=== PATIENT | male | born 1945 | race Caucasian/White ===

== ENCOUNTER → 2017-09-20 | Outpatient (CLI) | payer MEDICARE, OTHER ==
[2017-09-20 12:59] LABS: BASOPHILS # (AUTO) 0.1 10^3/uL (0.0-0.1); BASOPHILS % (AUTO) 1 % (0-10); EOSINOPHILS # (AUTO) 0.2 10^3/uL (0.0-0.3); EOSINOPHILS % (AUTO) 2 % (0-10); HEMATOCRIT 54 % (40-54); HEMOGLOBIN 18.8 G/DL (13.3-17.7); LYMPHOCYTES # (AUTO) 1.3 X 10^3 (1.0-4.0); LYMPHOCYTES % (AUTO) 14 % (12-44); MEAN CORPUSCULAR HEMOGLOBIN 32 PG (25-34); MEAN CORPUSCULAR HGB CONC 35 G/DL (32-36); MEAN CORPUSCULAR VOLUME 93 FL (80-99); MEAN PLATELET VOLUME 10.1 FL (7.4-10.4); MONOCYTES # (AUTO) 0.6 X 10^3 (0.0-1.0); MONOCYTES % (AUTO) 7 % (0-12); NEUTROPHILS # (AUTO) 6.8 X 10^3 (1.8-7.8); NEUTROPHILS % (AUTO) 76 % (42-75); PLATELET COUNT 199 10^3/uL (130-400); RED BLOOD COUNT 5.82 10^6/uL (4.35-5.85); RED CELL DISTRIBUTION WIDTH 13.6 % (10.0-14.5)
[2017-09-20 13:19] LABS: ALANINE AMINOTRANSFERASE 30 U/L (0-55); ALBUMIN 4.4 GM/DL (3.2-4.5); ALKALINE PHOSPHATASE 66 U/L (40-136); BILIRUBIN,TOTAL 0.6 MG/DL (0.1-1.0); BUN/CREATININE RATIO 18; CALCIUM 9.3 MG/DL (8.5-10.1); CARBON DIOXIDE 23 MMOL/L (21-32); CHLORIDE 107 MMOL/L (98-107); CREATININE SERUM 1.08 MG/DL (0.60-1.30); GFR ESTIMATED > 60; GLUCOSE 96 MG/DL (70-105); POTASSIUM 4.5 MMOL/L (3.6-5.0); SODIUM 141 MMOL/L (135-145); TOTAL PROTEIN 7.2 GM/DL (6.4-8.2)
[2017-09-20 13:51] LABS: ERYTHROCYTE SEDIMENTATION RATE 1 MM/HR (0-30)
== END ==
LOC: LAB 12:41
PROVIDERS: ATTEND Nurse Practitioner Family
DX: R21 Rash and other nonspecific skin eruption (principal)
CPT/HCPCS: 36415; 80053; 85025; 85652

== ENCOUNTER 2018-04-26 05:41 | Outpatient (CLI) | payer MEDICARE, OTHER ==
[~2018-04-26] VITALS: Ht 180.3 cm; Wt 72.6 kg
[2018-04-26] MEDS ORDERED: INDO25CA15 PO (12:56)
== END 2018-04-26 13:09 | disposition home or self-care (01) ==
LOC: PREOP 05:41
PROVIDERS: ATTEND Surgery
DX: Z01.818 Encounter for other preprocedural examination (principal)

== ENCOUNTER 2018-04-28 07:40 | Day surgery (SDC) | payer MEDICARE, OTHER ==
[~2018-04-28] VITALS: Ht 180.3 cm; Wt 72.6 kg
[~2018-04-28 07:40] MED LIST: INDO25CA15 PO
[2018-04-28] MEDS ORDERED: BUP/EPI 0.5% 1:200,000 (SENSORCAINE) 30 ML VIAL ONE (08:15)
[2018-04-28] MEDS ORDERED: proPOfol 200 MG/20 ML (DIPRIVAN) VIAL IV ONE (08:19)
[2018-04-28] MEDS ORDERED: ONDANSETRON 4 MG/2 ML (SDV) Z0FRAN ONE (08:19)
[2018-04-28] MEDS ORDERED: LIDOCAINE PF 2% 5 ML (XYLOCAINE) VIAL ONE (08:19)
[2018-04-28] MEDS ORDERED: DEXAMETHASONE 10 MG/ML (DECADRON) 1 ML VIAL ONE (08:19)
[2018-04-28] MEDS ORDERED: MIDAZOLAM 2 MG/2 ML (VERSED) VIAL ONE (08:20)
[2018-04-28] MEDS ORDERED: fentaNYL INJECTION 100 MCG/2 ML AMP ONE ×2 (08:20→10:43)
[2018-04-28] MEDS ORDERED: SEVOFLURANE (ULTANE) 15 ML INHAL SOLN ONE ×6 (08:23→10:54)
[2018-04-28] MEDS ORDERED: ROCURONIUM 10 MG/ML 5 ML SYRINGE IV ONE (08:23)
[2018-04-28 08:27] VITALS: BP 103/81
[2018-04-28] MEDS: LACTATED RINGERS 1,000 ML IV PRN ×2 (08:30→10:00)
[2018-04-28] MEDS ORDERED: ceFAZolin 2 GM IV Premixed 50 ML IV ONE (08:30)
--- NOTE | 2018-04-28 09:37 | Progress Note-Pre Operative ---
Pre-Operative Progress Note H&P Reviewed The H&P was reviewed, patient examined and no changes noted. Date Seen by Provider: Apr 28, 2018 Time Seen by Provider: 09:00 Date H&P Reviewed: Apr 28, 2018 Time H&P Reviewed: 09:00 Pre-Operative Diagnosis: symptomatic reducible right inguinal hernia CHAPINCITO MINER MD Apr 28, 2018 09:37
[2018-04-28] MEDS ORDERED: HYDR-34 PO (09:39)
--- NOTE | 2018-04-28 09:40 | Discharge Inst-Surgical ---
D/C Lap Instructions-KRISTOFER New, Converted, or Re-Newed RX: RX on Chart Follow Up Appt in 2 weeks Activity as tolerated No driving for 24 hours No driving while on pain medications Incentive Spirometry use every 2 hours while awake Regular Diet Symptoms to Report: Fever over 101 degree F, Nausea/Vomiting Infection Signs and Symptoms to report: Increased redness, Foul odor of wound, Increased drainage Bathing instructions: May shower Operative Area Clean/Dry; Keep incision clean/dry If any problems/questions: Contact your physician or go to Emergency Room CHAPINCITO MINER MD Apr 28, 2018 09:40
[2018-04-28] MEDS ORDERED: oxyCODONE/APAP 5/325MG (PERCOCET 5) TABLET PO PRN (09:45)
[2018-04-28] MEDS ORDERED: ONDANSETRON 4 MG/2 ML (SDV) Z0FRAN IVP PRN ×2 (09:45→11:15)
[2018-04-28] MEDS ORDERED: morphine INJ 10 MG/ML 1ML (SYR OR VIAL) IVP PRN (09:45)
[2018-04-28] MEDS ORDERED: ACETAMINOPHEN 325 MG TABLET PO PRN (09:45)
[2018-04-28] MEDS ORDERED: GLYCOPYRROLATE 0.2 MG/ML (ROBINUL) 2 ML VIAL ONE (10:45)
[2018-04-28] MEDS ORDERED: NEOSTIGMINE 1 MG/ML 5 ML SYRINGE ONE (10:45)
[2018-04-28] MEDS ORDERED: KETOROLAC 30 MG/ML VIAL ONE (10:55)
--- NOTE | 2018-04-28 11:04 | Progress Note-Post Operative ---
Post-Operative Progess Note Surgeon (s)/Fresh Foods Technician (s) Surgeon CHAPINCITO MINER MD Fresh Foods Technician: none Pre-Operative Diagnosis symptomatic reducible right inguinal hernia Post-Operative Diagnosis same Procedure & Operative Findings Date of Procedure 04/28/18 Procedure Performed/Findings laparoscopic right indirect inguinal hernia with mesh. Anesthesia Type GET Estimated Blood Loss Estimated blood loss (mL): minimal Specimens/Packing Specimens Removed none CHAPINCITO MINER MD Apr 28, 2018 11:04
[2018-04-28] MEDS ORDERED: HYDROmorphone 2 MG/ML VIAL (DILAUDID) IV ONE (11:15)
[2018-04-28 12:05] VITALS: BP 103/80
--- NOTE | 2018-04-28 12:05 | Anesthesia-General Post-Op ---
General Patient Condition Mental Status/LOC: Same as Preop Cardiovascular: Satisfactory Nausea/Vomiting: Absent Respiratory: Satisfactory Pain: Controlled Complications: Absent Post Op Complications Complications None Follow Up Care/Instructions Patient Instructions None needed. Anesthesia/Patient Condition Patient Condition Patient is doing well, no complaints, stable vital signs, no apparent adverse anesthesia problems. No complications reported per nursing. ROSALBA SINGH CRNA Apr 28, 2018 12:05
[2018-04-28 12:35] VITALS: BP 101/68
[2018-04-28 13:05] VITALS: BP 102/69
[2018-04-28 13:30] VITALS: BP 102/69
--- NOTE | 2018-04-28 15:26 | OPERATIVE REPORT ---
DATE OF SERVICE: 04/28/2018 ATTENDING PRIMARY CARE PHYSICIAN: Dr. Felix. PREOPERATIVE DIAGNOSIS: Symptomatic reducible right inguinal hernia. POSTOPERATIVE DIAGNOSIS: Symptomatic reducible right indirect inguinal hernia. PROCEDURE: Laparoscopic right inguinal hernia repair with mesh. SURGEON: Chapincito Miner MD ANESTHESIA: General endotracheal. ESTIMATED BLOOD LOSS: Minimal. FINDINGS: Right indirect inguinal hernia with nothing within the hernia sac. There was no left inguinal hernia component. Remainder of the omentum and small bowel appeared to be normal. DISPOSITION: The patient tolerated the procedure well. INDICATIONS: The patient is a 72-year-old male who was referred over to us for pain and swelling of the right inguinal region. He reports that this has been present for approximately 15 years; however, was small and asymptomatic; however, over the years, has grown much larger in size and become symptomatic. Upon examination, he was found to have a right inguinal hernia, which was reducible; however, tender to palpation. He is otherwise eating well, having normal bowel movements. DESCRIPTION OF PROCEDURE: The patient was brought to the operating room, laid supine on the table. After adequate IV pain and sedative medications and general endotracheal intubation, the abdomen was prepped and draped in standard surgical fashion. A 0.5% Marcaine with epinephrine was used to anesthetize the overlying skin in the infraumbilical rim and a transverse skin incision made using a 15 blade, a sharp towel clamp was applied. The Veress needle inserted with low opening pressure of 0 mmHg and the abdomen insufflated to 15 mmHg pressure. The Veress needle removed and a 10 mm Xcel trocar placed followed by a 10 mm 45-degree angle laparoscope visualizing the peritoneal cavity. Under direct visualization, we then proceed to place bilateral 5 mm ports after the skin and peritoneal lining were anesthetized using 0.5% Marcaine with epinephrine and a transverse skin incision made using a 15 blade. The patient was placed and then placed in Trendelenburg position. The peritoneal lining was then opened using Sonicision for starting laterally towards the conjoint tendon and inguinal ligament. We then proceeded medially identifying Darrick's ligament. We then proceeded inferior encompassing the entire hernia sac as well. The cord and its contents were identified and spared throughout the process. A medium size 3DMax polypropylene mesh was then placed through the 10 mm port and tacked to the Darrick's ligament medially and to the conjoined tendon laterally using absorbable tacks. The peritoneal lining was then placed over the mesh and a few tacks placed to hold it in place with visualization of good hemostasis. The 10 mm port site fascia and peritoneum were then closed under direct visualization using a Kahlil-Jerald device and 0 Vicryl suture. The abdomen was desufflated and remaining ports removed. All skin incisions were closed with 4-0 Monocryl running subcuticular sutures. Wounds were then cleaned and covered with Dermabond. The patient tolerated the procedure well. We will start IV normal pain medication as well as a clear liquid diet. Once he is tolerating clears, has good pain control with oral pain medication and is ambulating well, we will discharge him home. He is instructed to do no heavy lifting or exertion especially for the first 2 weeks. Job ID: [id number] DocumentID: [id number] Dictated Date: 04/28/2018 11:16:23 Embroidery Designer Date: 04/28/2018 15:26:00 Dictated By: CHAPINCITO MINER MD
== END 2018-04-28 13:30 | disposition home or self-care (01) ==
LOC: SDC 07:40
PROVIDERS: ATTEND Surgery
DX: K40.90 Unilateral inguinal hernia, without obstruction or gangrene, not specified as recurrent (principal); F17.220 Nicotine dependence, chewing tobacco, uncomplicated
CPT/HCPCS: 87081; 94664

== ENCOUNTER → 2019-09-12 | Outpatient (CLI) | payer MEDICARE, OTHER ==
[~2019-09-12] MED LIST changes: +HYDR-34 PO; -INDO25CA15 PO; +INDO25CA99 PO
--- NOTE | 2019-09-12 09:35 | Diagnostic Imaging Report ---
CLINICAL INDICATION: Patient has clinical back pain. EXAM: MRI of the lumbar spine performed without IV contrast. Sequences include sagittal T2, sagittal T1, sagittal T2 fat-sat, and axial T2. COMPARISON: None. FINDINGS: There is no acute lumbar spine fracture or dislocation. There is Modic type I degenerative signal changes involving the L2-L3, L3-L4, and L4-L5 levels. The visualized portions of the distal thoracic spinal cord, conus medullaris, and cauda equina nerve roots are unremarkable. The conus medullaris tip is seen at the lower L1 vertebral body level. There is no significant paraspinal soft tissue abnormality. There are hypertrophic spurs seen throughout the lumbar spine and facet arthropathy. L1-L2: There is a mild diffuse disc bulge. There is oltz-vl-kkiigitv facet arthropathy. There is moderate central canal narrowing, mild right neural foramen narrowing and vyrj-fq-xhbitzka left neural foramen narrowing. L2-L3: There is a diffuse disc bulge with severe loss of disc space height and endplate irregularity. There are disc spurs posteriorly extend into the foraminal regions bilaterally. There is moderate bilateral facet arthropathy. There is severe central canal stenosis and severe bilateral neural foramen narrowing. (right side more than the left). L3-L4: There is a diffuse disc bulge with moderate bilateral facet arthropathy. There is moderate to severe central canal stenosis. There is severe bilateral neural foramen narrowing. L4-L5: There is a diffuse disc bulge with moderate to severe loss of disc space height. There are disc spurs extend posteriorly into the foraminal regions bilaterally. There is severe bilateral facet arthropathy and ligamentum flavum buckling. There is moderate to severe central canal stenosis. There is severe bilateral neural foramen narrowing. L5-S1: There is a broad right paracentral disc protrusion/herniation which also extends to the right subarticular region. There is moderate to severe bilateral neural foramen narrowing. There is mild central canal narrowing. IMPRESSION: There is severe multilevel lumbar spine degenerative disc disease which is described detailed above. Dictated by: Dictated on workstation # [id number]
== END ==
LOC: RAD 07:25
PROVIDERS: ATTEND Orthopaedic Surgery
DX: M48.07 Spinal stenosis, lumbosacral region (principal); M51.16 Intervertebral disc disorders with radiculopathy, lumbar region
CPT/HCPCS: 72148

== ENCOUNTER → 2020-06-17 | Outpatient (CLI) | payer MEDICARE, OTHER ==
--- NOTE | 2020-06-17 11:55 | Diagnostic Imaging Report ---
EXAMINATION: Magnetic resonance imaging of the pelvis and left hip without contrast. DATE: June 17, 2020. COMPARISON: None. INDICATION: 74-year-old male, left hip pain. TECHNIQUE: Magnetic Resonance Imaging sequences were performed of the pelvis and left hip without contrast. FINDINGS: TENDONS AND MUSCLES: The gluteus alondra muscles and their origins and insertions are intact bilaterally. The tendons and muscles of the greater trochanter - gluteus minimus, piriformis and gluteus medius - are intact bilaterally. Both common hamstring attachments on the ischial tuberosities are intact and the extensor muscles of the thigh are intact. The visualized portions of the flexors and adductor muscles of the thigh and their attachments on the pelvis and hips are intact. Both iliopsoas and iliacus muscles are intact. The bilateral iliopsoas tendons are intact. 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 There is severe joint space loss of the left hip with xsoj-me-uzzs articulation. There is subchondral cystic change, osteophyte formation, and associated marrow edema. There is a small left hip joint effusion. The sacroiliac joints are unremarkable in appearance. LUMBAR SPINE: There is severe disc height loss at L2-L3, moderate disc height loss at L3-L4, and severe disc height loss at L4-L5. There is otherwise limited assessment of the lumbar spine. BONE: There is no acute fracture, bone contusion, or evidence of osteonecrosis. BURSAE AND SOFT TISSUES: There is diffuse wall thickening of the urinary bladder which may relate to cystitis and/or chronic outlet obstruction. Additional bursal and soft tissue assessment is unremarkable. IMPRESSION: 1. Intact muscles and tendons. 2. End-stage arthritis of the left hip with a small left hip joint effusion. 3. No acute fracture, bone contusion, or evidence of osteonecrosis. 4. Diffuse urinary bladder wall thickening which may relate to cystitis and/or chronic outlet obstruction. 5. Advanced disc degenerative changes of the lower lumbar spine. Dictated by: Dictated on workstation # [id number]
--- NOTE | 2020-06-17 12:28 | Diagnostic Imaging Report ---
EXAMINATION: Magnetic resonance imaging of the left knee without intravenous contrast DATE: June 17, 2020. COMPARISON: None. INDICATION: 74-year-old male, left knee pain. TECHNIQUE: Multiplanar, multisequence non contrast enhanced MR imaging was accomplished. FINDINGS: MENISCI: There is an extensive multidirectional tear involving the anterior horn, body, and posterior horn of the medial meniscus extending into the posterior root attachment. There is 4 mm medial meniscal extrusion. There is a parameniscal cyst adjacent to the body/posterior horn junction of the medial meniscus measuring approximately 11 x 4 x 5 mm in size. There is an oblique tear involving the body and posterior horn of the lateral meniscus. LIGAMENTS AND TENDONS: The anterior and posterior cruciate ligaments are intact. The medial collateral ligament is intact. The iliotibial band, mid third lateral capsular ligament, fibular collateral ligament, biceps femoris tendon and conjoined tendon are intact. The quadriceps tendon and patella ligament are intact. JOINT: The articular cartilage surfaces are intact. There is no knee joint effusion, prominent synovitis, or intra-articular body. BONE: There is unremarkable bone marrow signal. Specifically, negative for fracture, osteomyelitis, osteonecrosis, or marrow replacing process. BURSAE AND SOFT TISSUES: No Bakers cyst. IMPRESSION: 1. Tears of the medial and lateral meniscus as above. 4 mm medial meniscal extrusion. Parameniscal cyst adjacent to the body/posterior horn junction of the medial meniscus measuring 11 x 4 x 5 mm in size. 2. Intact anterior and posterior cruciate ligaments. Additional ligaments and tendons are intact. 3. Intact articular cartilage. No knee joint effusion. 4. No acute fracture, bone contusion, or evidence of osteonecrosis. Dictated by: Dictated on workstation # [id number]
== END ==
LOC: RAD 10:01
PROVIDERS: ATTEND Nurse Practitioner Family
DX: S83.282A Other tear of lateral meniscus, current injury, left knee, initial encounter (principal); S83.242A Other tear of medial meniscus, current injury, left knee, initial encounter; M13.852 Other specified arthritis, left hip; M25.862 Other specified joint disorders, left knee; M51.36 Other intervertebral disc degeneration, lumbar region; N32.89 Other specified disorders of bladder
CPT/HCPCS: 73721

== ENCOUNTER → 2022-04-02 | Outpatient (CLI) | payer MEDICARE, OTHER ==
[~2022-04-02] VITALS: Ht 180.3 cm; Wt 73.0 kg
== END | disposition home or self-care (01) ==
LOC: PREOP 06:46
PROVIDERS: ATTEND Specialist
DX: Z01.818 Encounter for other preprocedural examination (principal); H25.9 Unspecified age-related cataract

== ENCOUNTER 2022-04-21 05:30 | Outpatient (CLI) | payer MEDICARE ==
[~2022-04-21] VITALS: Ht 180.3 cm; Wt 73.0 kg
== END 2022-04-21 08:28 | disposition home or self-care (01) ==
LOC: PREOP 05:30
PROVIDERS: ATTEND Specialist
DX: Z01.818 Encounter for other preprocedural examination (principal)

== ENCOUNTER 2022-04-24 09:58 | Day surgery (SDC) | payer MEDICARE ==
[~2022-04-24] VITALS: Ht 180.3 cm; Wt 73.0 kg
[2022-04-24] MEDS ORDERED: MOXIFLOXACIN OPHTH SOLN 5 MG/ML 0.3 ML SYRINGE OP ONE (10:15)
[2022-04-24] MEDS ORDERED: TIMOLOL 0.5% (CATARACTS) 0.3 ML BTL OU PRN (10:15)
[2022-04-24] MEDS ORDERED: POVIDONE (BETADINE) OPHTH SOLN 5% 30 ML OP ONE (10:15)
[2022-04-24] MEDS: TETRACAINE 0.5% OPHTH SOLN 4 ML BTL (SINGLE DOSE ONLY) OU PRN ×4 (10:18→10:32)
[2022-04-24] MEDS: TROPICAMIDE 1% OPH SOLN (MYDRIACYL) 15 ML BTL OP SCH ×3 (10:22→10:32)
[2022-04-24] MEDS: PHENYLEPHRINE 10% OPHTH (NEO-SYN) 5 ML BTL OU SCH ×3 (10:22→10:32)
[2022-04-24 10:23] VITALS: BP 99/65
--- NOTE | 2022-04-24 10:41 | Ophthalmologist Pre-Op Note ---
Pre-Operative Progress Note H&P Reviewed The H&P was reviewed, patient examined and no changes noted. Date H&P Reviewed: Apr 24, 2022 Time H&P Reviewed: 10:41 Pre-Op Dx Cataract, Right Eye LUCAS BARROSO MD Apr 24, 2022 10:41
[2022-04-24] MEDS ORDERED: MIDAZOLAM 2 MG/2 ML (VERSED) VIAL ONE (10:44)
--- NOTE | 2022-04-24 11:06 | Ophthalmology Operative Report ---
Cataract removal/placement IOL PREOPERATIVE DIAGNOSIS: Cataract Right Eye POSTOPERATIVE DIAGNOSIS: Cataract Right Eye PROCEDURE: Cataract removal and placement of posterior chamber implant, right eye SURGEON: Domenico Barroso ANESTHESIA: Topical with sedation COMPLICATIONS: None ESTIMATED BLOOD LOSS: Minimal DESCRIPTION OF PROCEDURE: After proper informed consent was obtained, the patient, a 76 male, was taken to the Operating Room and the right eye was anesthetized with tetracaine. The right eye was then prepped and draped in the usual manner. A wire lid speculum was placed. A paracentesis was made at the left hand position. Preservative free lidocaine was injected into the anterior chamber followed by viscoelastic. A clear corneal incision was made in the temporal position. A capsulorrhexis was preformed and the central nuclear and cortical material were removed. The posterior capsule was polished and Alex 20.0 AU00T0 IOL was placed into the capsular bag. The residual viscoelastic was aspirated and balanced saline solution was injected into the anterior chamber. Moxifloxacin was injected into the anterior chamber. The wound was checked and found to be water tight. The patient tolerated the procedure well without complications. DOMENICO BARROSO MD Apr 24, 2022 11:06
[2022-04-24 11:12] VITALS: BP 98/57
--- NOTE | 2022-04-24 12:15 | Anesthesia-General Post-Op ---
MAC Patient Condition Mental Status/LOC: Same as Preop Cardiovascular: Satisfactory Nausea/Vomiting: Absent Respiratory: Satisfactory Pain: Controlled Complications: Absent Post Op Complications Complications None Follow Up Care/Instructions Patient Instructions None needed. Anesthesiology Discharge Order Discharge Order Patient is doing well, no complaints, stable vital signs, no apparent adverse anesthesia problems. No complications reported per nursing. DEWARD MARTINEZ CRNA Apr 24, 2022 12:15
[2022-04-24] MEDS ORDERED: acetaZOLAMIDE ER 500 MG CAP (DIAMOX SEQUELS) PO ONE (14:00)
== END 2022-04-24 11:14 | disposition home or self-care (01) ==
LOC: SDC 09:58
PROVIDERS: ATTEND Specialist
DX: H25.9 Unspecified age-related cataract (principal); Z87.891 Personal history of nicotine dependence
CPT/HCPCS: 66984; V2632

== ENCOUNTER → 2022-05-04 | Outpatient (CLI) | payer MEDICARE | END | disposition home or self-care (01) | LOC: PREOP 05:55 | PROVIDERS: ATTEND Specialist | DX: Z01.818 Encounter for other preprocedural examination (principal) ==

== ENCOUNTER 2022-05-08 09:36 | Day surgery (SDC) | payer MEDICARE ==
[~2022-05-08] VITALS: Ht 180.3 cm; Wt 73.0 kg
[2022-05-08] MEDS: TETRACAINE 0.5% OPHTH SOLN 4 ML BTL (SINGLE DOSE ONLY) OU PRN ×4 (09:42→09:58)
[2022-05-08] MEDS ORDERED: POVIDONE (BETADINE) OPHTH SOLN 5% 30 ML OP ONE (09:45)
[2022-05-08] MEDS ORDERED: MOXIFLOXACIN OPHTH SOLN 5 MG/ML 0.3 ML SYRINGE OP ONE (09:45)
[2022-05-08] MEDS ORDERED: TIMOLOL 0.5% (CATARACTS) 0.3 ML BTL OU PRN (09:45)
[2022-05-08] MEDS: TROPICAMIDE 1% OPH SOLN (MYDRIACYL) 15 ML BTL OP SCH ×3 (09:48→09:58)
[2022-05-08] MEDS: PHENYLEPHRINE 10% OPHTH (NEO-SYN) 5 ML BTL OU SCH ×3 (09:48→09:58)
[2022-05-08 09:50] VITALS: BP 123/86
[2022-05-08] MEDS ORDERED: MIDAZOLAM 2 MG/2 ML (VERSED) VIAL ONE (10:26)
--- NOTE | 2022-05-08 10:30 | Ophthalmologist Pre-Op Note ---
Pre-Operative Progress Note H&P Reviewed The H&P was reviewed, patient examined and no changes noted. Date H&P Reviewed: May 08, 2022 Time H&P Reviewed: 10:30 Pre-Op Dx Cataract, Left Eye LUCAS BARROSO MD May 08, 2022 10:30
--- NOTE | 2022-05-08 10:51 | Ophthalmology Operative Report ---
Cataract removal/placement IOL PREOPERATIVE DIAGNOSIS: Cataract Left Eye POSTOPERATIVE DIAGNOSIS: Cataract Left Eye PROCEDURE: Cataract removal and placement of posterior chamber implant, left eye SURGEON: Domenico Barroso ANESTHESIA: Topical with sedation COMPLICATIONS: None ESTIMATED BLOOD LOSS: Minimal DESCRIPTION OF PROCEDURE: After proper informed consent was obtained, the patient, a 76 male, was taken to the Operating Room and the left eye was anesthetized with tetracaine. The left eye was then prepped and draped in the usual manner. A wire lid speculum was placed. A paracentesis was made at the left hand position. Preservative free lidocaine was injected into the anterior chamber followed by viscoelastic. A clear corneal incision was made in the temporal position. A capsulorrhexis was preformed and the central nuclear and cortical material were removed. The posterior capsule was polished and an Alex 20.0 AU00T0 was placed into the capsular bag. The residual viscoelastic was aspirated and balanced saline solution was injected into the anterior chamber. Moxifloxacin was injected into the anterior chamber. The wound was checked and found to be water tight. The patient tolerated the procedure well without complications. DOMENICO BARROSO MD May 08, 2022 10:51
[2022-05-08 10:58] VITALS: BP 106/79
[2022-05-08] MEDS ORDERED: acetaZOLAMIDE ER 500 MG CAP (DIAMOX SEQUELS) PO ONE (12:00)
--- NOTE | 2022-05-08 12:06 | Anesthesia-General Post-Op ---
MAC Patient Condition Mental Status/LOC: Same as Preop Cardiovascular: Satisfactory Nausea/Vomiting: Absent Respiratory: Satisfactory Pain: Controlled Complications: Absent Post Op Complications Complications None Follow Up Care/Instructions Patient Instructions None needed. Anesthesiology Discharge Order Discharge Order Patient is doing well, no complaints, stable vital signs, no apparent adverse anesthesia problems. No complications reported per nursing. GYPSY MACK CRNA May 08, 2022 12:06
== END 2022-05-08 10:59 | disposition home or self-care (01) ==
LOC: SDC 09:36
PROVIDERS: ATTEND Specialist
DX: H25.9 Unspecified age-related cataract (principal); Z87.891 Personal history of nicotine dependence
CPT/HCPCS: 66984; V2632